=== PATIENT | female | born 1975 | race Caucasian/White ===

== ENCOUNTER 2017-01-17 21:04 | Emergency (ER) | payer MEDICAID ==
[~2017-01-17] VITALS: Ht 157.5 cm; Wt 81.6 kg
[~2017-01-17 21:04] MED LIST: AUGMENTIN 875 M1 TAB PO; AURALGAN OT10 ML/BOT OT; COLCHICINE 0.60.6 MG PO; DARVOCET-N 1001 EACH PO; DIABETA2.5 M1 PO; FLEXERIL10 MG PO; GENTAMICIN3 MG/GM OP; IBU-8800 MG PO; INDOMETHACIN 2525 MG PO; LEVOTHYROXINE0.05 MG PO; LEVOTHYROXINE0.1 M1 PO; LORTAB 5/500 501 TAB PO; METFORMIN1000 MG PO; MOTRIN 400MG.400 MG PO; NAPROSYN 500MG500 MG PO; UNKNOWN MED PO; UNKNOWN THYROID MED PO
--- OUTSIDE RECORDS SUMMARY | 2017-01-17 21:08 | External Medical Summary Rpt ---
Demographics Preferred Language Serbian Marital Status Unknown Congregation Affiliation Unknown Race Unknown Ethnic Group Unknown Author Author , Organization [employer] Address Unknown Phone Unavailable Purpose Continuity of Care Document - through 2016 Immunization No patient found.
--- OUTSIDE RECORDS SUMMARY | 2017-01-17 21:08 | External Medical Summary Rpt ---
Author Author [facility] Organization [employer] Address Unknown Phone Unavailable Purpose Continuity of Care Document - through 2016
--- OUTSIDE RECORDS SUMMARY | 2017-01-17 21:08 | External Medical Summary Rpt ---
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 complet OR 012 SERGEI, ed 09:30 RN ETHNICI 07-12-2 WHITE, complet TY 012 NON-HIS ed 09:30 PANIC KIT 07-17-2 complet EXPIRAT 012 012 ed ION 09:30 DATE SYMPTOM YES complet S 012 ed 09:30 REASON 07-12- VOLUNTE complet FOR 012 ER/MEDI ed REQUEST 09:30 DOMINICK PROBLEM SPECIME URINE complet N 012 ed SOURCE 09:30 PREGNAN 07-12-2 NO complet T 012 ed 09:30 CHART 403-17- complet NUMBER 012 [id number] ed 09:30 Chlamyd 07-12- Pending complet ia 012 ed trachom 09:30 atis rRNA [Presen ce] in Unspeci fied specime n by Probe & target amplifi cation method Neisser 07-12-2 Pending complet ia 012 ed gonorrh 09:30 oeae rRNA [Presen ce] in Unspeci fied specime n by Probe & target amplifi cation method
--- OUTSIDE RECORDS SUMMARY | 2017-01-17 21:08 | External Medical Summary Rpt ---
Demographics Preferred Language Nepali Marital Status Unknown Zoroastrian Affiliation Unknown Race Unknown Ethnic Group Unknown Author Author , Organization [employer] Address Unknown Phone Unavailable Purpose Continuity of Care Document - through 2016 Immunization No patient found.
--- OUTSIDE RECORDS SUMMARY | 2017-01-17 21:09 | External Medical Summary Rpt ---
Author Author HERNANDEZ Lau, HERNANDEZ [employer] Organization [employer] Address Unknown Phone Unavailable Results CHLAMYDIA AND GONORRHEA TESTING Observa Value Referen Units Interpr Notes Date tion ce etation Range COLLECT A. No No No No Jul 12 OR SERGEI, informa informa informa informa 2012 RN tion in tion in tion in tion in 9:30 AM source source source source data data data data ETHNICI WHITE, No No No No Jul 12 TY NON-HIS informa informa informa informa 2012 PANIC tion in tion in tion in tion in 9:30 AM source source source source data data data data KIT 10-31-2 No No No No Jul 12 EXPIRAT 012 informa informa informa informa 2012 ION tion in tion in tion in tion in 9:30 AM DATE source source source source data data data data SYMPTOM YES No No No No Jul 12 S informa informa informa informa 2012 tion in tion in tion in tion in 9:30 AM source source source source data data data data REASON VOLUNTE No No No No Jul 12 FOR ER/MEDI informa informa informa informa 2012 REQUEST DOMINICK tion in tion in tion in tion in 9:30 AM PROBLEM source source source source data data data data SPECIME URINE No No No No Jul 12 N informa informa informa informa 2012 SOURCE tion in tion in tion in tion in 9:30 AM source source source source data data data data PREGNAN NO No No No No Jul 12 T informa informa informa informa 2012 tion in tion in tion in tion in 9:30 AM source source source source data data data data CHART 403-17- No No No No Jul 12 NUMBER [id number] informa informa informa informa 2012 tion in tion in tion in tion in 9:30 AM source source source source data data data data Chlamyd NEGATIV No No No NEGATIV Jul 12 ia E informa informa informa E 2012 trachom tion in tion in tion in RESULT= 9:30 AM atis source source source WITHIN rRNA data data data NORMAL [Presen ce] in LIMITSP Unspeci OSITIVE fied specime RESULT= n by Probe & ABNORMA target LEQUIVO DOMINICK amplifi RESULT= cation method INDETER MINATEU NSATISF ACTORY RESULT= INVALID Neisser NEGATIV No No No NEGATIV Jul 12 ia E informa informa informa E 2012 gonorrh tion in tion in tion in RESULT= 9:30 AM oeae source source source WITHIN rRNA data data data NORMAL [Presen ce] in LIMITSP Unspeci OSITIVE fied specime RESULT= n by Probe & ABNORMA target LEQUIVO DOMINICK amplifi RESULT= cation method INDETER MINATEU NSATISF ACTORY RESULT= INVALID THE APTIMA COMBO 2 ASSAY IS NOT INTENDE D FOR THE EVALUAT ION OF SUSPECT EDSEXUA L ABUSE OR FOR OTHER MEDICO- LEGAL INDICAT IONS. FOR THOSE PATIENT S FORWHOM A FALSE POSITIV E RESULT MAY HAVE ADVERSE PSYCHO- SOCIAL IMPACT, [facility] RET[facility] NG.\.br \This report contain s patient informa tion that must be protect ed in accorda nce with the Health Insuran ce Portabi lity and Account ability Act. CHLAMYDIA AND GONORRHEA TESTING Observa Value Referen Units Interpr Notes Date tion ce etation Range COLLECT A. No No No No Jul 12 OR SERGEI, informa informa informa informa 2012 RN tion in tion in tion in tion in 9:30 AM source source source source data data data data ETHNICI WHITE, No No No No Jul 12 TY NON-HIS informa informa informa informa 2012 PANIC tion in tion in tion in tion in 9:30 AM source source source source data data data data KIT 10-31-2 No No No No Jul 12 EXPIRAT 012 informa informa informa informa 2012 ION tion in tion in tion in tion in 9:30 AM DATE source source source source data data data data SYMPTOM YES No No No No Jul 12 S informa informa informa informa 2012 tion in tion in tion in tion in 9:30 AM source source source source data data data data REASON VOLUNTE No No No No Jul 12 FOR ER/MEDI informa informa informa informa 2012 REQUEST DOMINICK tion in tion in tion in tion in 9:30 AM PROBLEM source source source source data data data data SPECIME URINE No No No No Jul 12 N informa informa informa informa 2012 SOURCE tion in tion in tion in tion in 9:30 AM source source source source data data data data PREGNAN NO No No No No Jul 12 T informa informa informa informa 2012 tion in tion in tion in tion in 9:30 AM source source source source data data data data CHART 403-17- No No No No Jul 12 NUMBER [id number] informa informa informa informa 2012 tion in tion in tion in tion in 9:30 AM source source source source data data data data Chlamyd Pending No No No No Jul 12 ia informa informa informa informa 2012 trachom tion in tion in tion in tion in 9:30 AM atis source source source source rRNA data data data data [Presen ce] in Unspeci fied specime n by Probe & target amplifi cation method Neisser Pending No No No \.br\Jul 12 ia informa informa informa is 2012 gonorrh tion in tion in tion in report 9:30 AM oeae source source source contain rRNA data data data s [Presen patient ce] in Unspeci informa fied tion specime that n by must be Probe & target protect ed in amplifi accorda cation nce method with the Health Insuran ce Portabi lity and Account ability Act.
--- OUTSIDE RECORDS SUMMARY | 2017-01-17 21:09 | External Medical Summary Rpt ---
Author Author HERNANDEZ Lau, HERNANDEZ [facility] Organization [employer] Address Unknown Phone Unavailable [...] MAY HAVE ADVERSE PSYCHO- SOCIAL IMPACT, [facility] NG.\.br \This report contain s [...]
[2017-01-17] MEDS ORDERED: BUDEPRION XL150 MG PO (21:18)
[2017-01-17] MEDS ORDERED: LISINOPRIL2.5 MG PO (21:19)
[2017-01-17] MEDS ORDERED: GABAPENTIN100 MG PO (21:19)
--- NOTE | 2017-01-17 21:27 | Emergency Room Report ---
History of Present Illness Time Seen by 2124 Presenting Problem in Triage Pt arrived:Walked Presenting Problem:PT RPTS VAGINAL BLEEDING X 2 WEEKS. PT STS "IT'S GETTING HEAVIER AND HEAVIER. I'VE GONE THROUGH 26 PADS IN A DAY." PT RPTS SHE SAW DR JACKSON OFFICE FOR SAME COMPLAINT, PT WAS PLACED ON CONTROL PILLS FOR A MONTH PT RPTS SHE TOOK HER LAST PILL 4 DAYS AGO. PT RPTS NO CHANGES IN THE VAGINAL BLEEDING. PT RPTS SHE ALSO HAS THE IMPLENON IN THE ARM, WITH PLANS TO HAVE IT REMOVED ON 01/30/17. 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 N Clinical Suspician of Infection? N Mental Status: 1 - Regular (Normal Baseline) Sepsis Risk:Low Sepsis Risk Have you (or family members/close friends) recently traveled outside the [place]? N If Yes, where/when: Have you had exposure to infectious disease within the past month? N TB? Other? Specify: Source patient, RN notes reviewed, family, old records Exam Limitations no limitations Comment over the last 2 week spt with crampy vag bleeding Cardiac Chest Pain Chest pain indicative of cardiac No Timing/Duration this evening Severity moderate ALLERGIES Coded Allergies: acetaminophen (From NYQUIL) (Mild, 01/17/17) dextromethorphan (From NYQUIL) (Mild, 01/17/17) doxylamine (From NYQUIL) (Mild, 01/17/17) pseudoephedrine (From NYQUIL) (Mild, 01/17/17) Penicillins (10/19/15) alcohol (10/19/15) Home Medications Reported Medications METFORMIN HCL (Metformin) 1,000 MG PO BID Glyburide (Diabeta) 2.5 MG PO DAILY Levothyroxine Sodium (Levothyroxine 0.1MG) 0.1 MG PO DAILY #30 Bupropion Hcl (Bupropion XL) 150 MG PO DAILY #30 Gabapentin (Gabapentin 100MG) 100 MG PO Q6HP PRN PAIN #120 LISINOPRIL (Lisinopril) 2.5 MG PO DAILY #30 History Medical History General CAD? No Angina: No [place]: No Hypertension? No Hyperlipidemia? Yes CHF? No DVT? No PE? No COPD? No Asthma? No Anemia? No GERD? No Gastric ulcers? No GI Bleed? No Hernia? No Thyroid Problems? No Hypothyroidism? No CVA? Yes Seizures? No Diabetes? Yes Insulin Dependent: No Insulin Pump: No Home FSBS? Yes Renal Insuffiency? No End Stage Renal Disease? No UTI? No Stones? No BPH? No GB Disease: No Nephritic Syndrome? No Asplenia? No Hepatitis? No Sickle Cell Disease? No Arthritis? No Migraines? No Cataracts? No Glaucoma? No MRSA? No HIV? No TB? No Anxiety? No Depression? No Cancer? Yes Site: CERVIX More? 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 Respiratory denies cough, denies shortness of breath, denies wheezing Cardiovascular denies chest pain, denies palpitations, denies syncope Gastrointestinal denies abdominal pain, denies diarrhea, denies vomiting Genitourinary see HPI, abnormal vaginal bleeding. denies: dysuria, frequency, hesitancy, hematuria. Musculoskeletal denies joint pain, denies muscle pain, denies neck pain Skin denies rash Psychiatric/Neurological denies headache, denies seizure Physical Exam Vital Signs Vital Signs Date Time Temp Pulse Resp B/P Pulse O2 O2 Flow FiO2 Ox Delivery Rate 01/17 2154 115 113/84 01/17 2154 109 116/81 01/17 2154 115 18 113/84 98 01/17 2146 96 110/66 01/17 2111 99.1 104 18 119/72 98 - WBC >12,000 or <4,000 or 10% bands? 2 or more SIRS Criteria Met? B/P: MAP:87 Creatinine >2.0? UA output<0.5ml/kg/hr for 2 hrs? Platelet count >100,000? Lactate >2.0mmol/1? INR >1.2 or PTT > than 60 sec? Evidence of Organ Dysfunction? Provider documented clinical suspician of infection? N Sepsis Criteria Count: 1 Sepsis Risk: Low Sepsis Risk General Appearance no apparent distress Eye Exam - bilateral eye PERRL, bilateral eye EOMI Ear, Nose, Throat normal ENT inspection Neck supple Respiratory Status No: respiratory distress. Cardiovascular regular rate/rhythm Peripheral Pulses Pulses normal Yes Gastrointestinal soft, no organomegaly, no pulsatile mass, no guarding, no rebound Extremities normal inspection Strength 4 Upper Ext (L), 4 Upper Ext (R), 4 Lower Ext (L), 4 Lower Ext (R) Pelvic deferred Neurologic alert, folder seamer II-XII nml as tested, no motor/sensory deficits Mental status normal mood/affect Skin intact Medical Decision Making LABS/Meds/Orders Pt receiving controlled substance in ED? No Results/Orders Laboratory Tests 01/17/172124: Sodium 138, Potassium 4.2, Chloride 103, Carbon Dioxide 28, BUN 9, Creatinine 0.9, Estimated Creat Clear 104, Estimated GFR (MDRD) 68, Glucose 296 H, Calcium 8.3 L, Total Bilirubin 0.3, AST 17, ALT 33, Alkaline Phosphatase 54, Total Protein 6.9, Albumin 3.3 L, Globulin 3.6 H, Albumin/Globulin Ratio 0.9 L, WBC 11.7 H, RBC 3.77 L, Hgb 12.1 L, Hct 35.7 L, MCV 94.6, RDW 12.6, Plt Count 335, MPV 6.1 L, Gran % 60.9, Gran # 7.1, Lymphocytes % 28.4, Monocytes % 6.1, Eosinophils % 4.0, Basophils % 0.6, Lymphocytes # 3.3, Monocytes # 0.7, Eosinophils # 0.5 H, Basophils # 0.1, PUBS MCHC 33.3, MCH 31.5 H 01/17/172114: Urine Color RED, Urine Appearance TURBID, Urine pH 6.0, Ur Specific Notus >= 1.030, Urine Protein 3+ H, Urine Ketones NEGATIVE, Urine Blood 3+ H, Urine Nitrate POSITIVE H, Urine Bilirubin NEGATIVE, Urine Urobilinogen 1.0, Ur Leukocyte Esterase TRACE H, Urine RBC TNTC, Urine WBC 3-5, Urine Bacteria 1+, Urine Glucose 3+ H Current Medication Orders Sig/Arnol Start time Last Medication Dose Route Stop Time Status Admin Sodium Chloride 1,000 ML .STK-MED ONE 01/17 2205 DC IV Sodium Chloride 10 ML PRN PRN 01/17 2130 AC IV 01/19 2120 Sodium Chloride 1,000 ML .Q1H1M 01/17 2130 DC 01/17 IV 01/17 Sodium Chloride 10 ML PRN PRN 01/17 2130 AC IV 01/18 2126 Orders Procedure Date/time Status ORTHOSTATIC B/P 01/17 2127 Active IV SALINE LOCK 01/18 2120 Active URINALYSIS/COMPLETE 01/18 2120 Complete CBC WITH AUTO DIFF 01/18 2120 Complete CHEM 12 PROFILE 01/18 2120 Complete CULTURE, URINE 01/17 2115 Active Departure Departure Time of Disposition 2236 Disposition DC Home or Self Care(routine) Clinical Impression Primary Impression: DUB (dysfunctional uterine bleeding) Condition STABLE Referrals Levi BULLOCK,Emmanuel Simpson discussed with dr sanchez Patient Instructions DI for Vaginal Bleeding Additional Instructions fluids and call pcp and dr sanchez in am Discharge Counseling Counseled pt/family regarding diagnosis, test results, medications/RX, follow up needs ED Critical Care Critical Care No at 2230
[2017-01-17 21:31] LABS: URINE BILIRUBIN - DIPSTICK NEGATIVE (NEG); URINE BLOOD 3+ (NEG)
[2017-01-17 21:41] LABS: LYMPH # 3.3 K/mm3 (0.7-4.5); LYMPH % 28.4 % (10-50.0)
[2017-01-17 21:49] LABS: HEMOGLOBIN 12.1 g/dL (12.2-16.2)
[2017-01-17 23:12] VITALS: BP 115/78
== END 2017-01-17 23:14 | disposition home or self-care (01) ==
LOC: ER 21:04
PROVIDERS: Emergency Medicine
DX: N93.8 Other specified abnormal uterine and vaginal bleeding (principal); E11.9 Type 2 diabetes mellitus without complications; Z72.0 Tobacco use

== ENCOUNTER 2017-04-14 19:25 | Emergency (ER) | payer MEDICAID ==
[~2017-04-14] VITALS: Ht 157.5 cm; Wt 81.6 kg
[~2017-04-14 19:25] MED LIST changes: +BUDEPRION XL150 MG PO; +GABAPENTIN100 MG PO; +LISINOPRIL2.5 MG PO
--- OUTSIDE RECORDS SUMMARY | 2017-04-14 19:46 | External Medical Summary Rpt ---
Demographics Preferred Language Turkmen Marital Status Unknown Christian Affiliation Unknown Race Unknown Ethnic Group Unknown Author Author , ALLIE NG Address Unknown Phone Immunization Unable to retrieve immunization data due to connection failure with Immunization Registry. Please try again later.
--- OUTSIDE RECORDS SUMMARY | 2017-04-14 19:46 | External Medical Summary Rpt ---
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 N93.8 OTHER SPECIFIED ABNORMAL UTERINE AND VAGINAL BLEEDING R31.9 HEMATURIA, UNSPECIFIED S33.5XXA SPRAIN OF LIGAMENTS OF LUMBAR SPINE, INITIAL ENCOUNTER Results Labs Lab Lab Date Result Refere Interp Status Commen Order Detail nces retati t Range on Drugs identified in Urine by Screen method (03-23-2017 14:46) Ampheta NEGATIV <1000 complet mine 017 E ed [Presen 14:46 ce] in Urine by Screen method 11-Hydr NEGATIV <50 complet oxy 017 E ed delta-9 14:46 tetrahy drocann abinol [Presen ce] in Unspeci fied specime n CHLAMYDIA AND GONORRHEA TESTING (07-12-2012 09:30) Chlamyd [...] OR 012 SERGEI, ed 09:30 RN ETHNICI WHITE, complet TY 012 NON-HIS ed 09:30 PANIC KIT complet EXPIRAT 012 012 ed ION 09:30 DATE SYMPTOM YES complet S 012 ed 09:30 REASON VOLUNTE complet FOR 012 ER/MEDI ed REQUEST 09:30 DOMINICK PROBLEM SPECIME 10-26-2 URINE complet N 012 ed SOURCE 09:30 PREGNAN NO complet T 012 ed 09:30 CHART 403-17- complet NUMBER 012 0845 ed 09:30 Chlamyd Pending complet ia 012 ed trachom 09:30 atis rRNA [Presen ce] in Unspeci fied specime n by Probe & target amplifi cation method Neisser Pending complet ia 012 ed gonorrh 09:30 oeae rRNA [Presen ce] in Unspeci fied specime n by Probe & target amplifi cation method
--- OUTSIDE RECORDS SUMMARY | 2017-04-14 19:46 | External Medical Summary Rpt ---
Author Author , HERNANDEZ NG Address Unknown Phone [email or web address] Purpose Continuity of Care Document - 07-12-2012 [...]
--- OUTSIDE RECORDS SUMMARY | 2017-04-14 19:46 | External Medical Summary Rpt ---
Demographics Preferred Language Welsh Marital Status Unknown Baptist Affiliation Unknown Race Unknown Ethnic Group Unknown Author Author , ALLIE NG Address Unknown Phone Immunization Unable to retrieve immunization data due to connection failure with Immunization Registry. Please try again later.
--- OUTSIDE RECORDS SUMMARY | 2017-04-14 19:47 | External Medical Summary Rpt ---
Author Author HERNANDEZ Lau, [employer] Organization [employer] Address Unknown Phone Unavailable Results Drugs identified in Urine by Screen method Observa Value Referen Units Interpr Notes Date tion ce etation Range Positive urine drug screen samples are stored for 7 days. Contact the Lab if confirmation of positives is needed. Ampheta NEGATIV <1000 ng/mL No No Mar 23 mine E informa informa 2017 [Presen tion in tion in 2:46 PM ce] in source source Urine data data by Screen method Barbitura <200 ng/mL No No Mar 23 jerri informati informati 2017 2:46 [Mass/vol on in on in PM ume] in source source Urine by data data Screen method Benzodiaz 200 ng/mL ng/mL No No Mar 23 epines informati informati 2017 2:46 [Mass/vol on in on in PM ume] in source source Serum or data data Plasma by Screen method Cocaine <300 ng/g No No Mar 23 [Mass/vol informati informati 2017 2:46 ume] in on in on in PM Unspecifi source source ed data data specimen Methadone <300 ng/mL No No Mar 23 informati informati 2017 2:46 [Mass/vol on in on in PM ume] in source source Unspecifi data data ed specimen Opiates <300 ng/mL No No Mar 23 [Mass/vol informati informati 2017 2:46 ume] in on in on in PM Unspecifi source source ed data data specimen Phencycli <25 ng/mL No No Mar 23 dine informati informati 2017 2:46 [Mass/vol on in on in PM ume] in source source Unspecifi data data ed specimen 11-Hydr NEGATIV <50 ng/mL No No Mar 23 oxy E informa informa 2017 delta-9 tion in tion in 2:46 PM source source tetrahy data data drocann abinol [Presen ce] in Unspeci fied specime n CHLAMYDIA AND GONORRHEA TESTING Observa Value Referen [...] MAY HAVE ADVERSE PSYCHO- SOCIAL IMPACT, [facility].\.br \This report contain s [...] 12 TY NON-HIS informa informa informa informa 2011 PANIC tion in tion in tion in [...] cation method Neisser Pending No No No \.br\Th Jul 12 ia informa informa informa is 2012 [...]
--- OUTSIDE RECORDS SUMMARY | 2017-04-14 19:47 | External Medical Summary Rpt ---
[...] HAVE ADVERSE PSYCHO- SOCIAL IMPACT, [facility].\.br \This report contain [...]
--- NOTE | 2017-04-14 20:06 | Emergency Room Report ---
History of Present Illness Time Seen by 2003 Presenting Problem in Triage Pt arrived:Walked Presenting Problem:CUT HER LEFT HAND ON KNIFE AT HOME. Onset of symptoms date/time:04/14/17 or onset unknown for: Treatment Prior to Arrival: [employer] Provided by: Sepsis Risk Assessment: Temp: 98.9 B/P: 133/91 MAP: 105 Pulse: 96 Resp: 14 Recent fever? N Clinical Suspician of Infection? N Mental Status: 1 - Regular (Normal Baseline) Sepsis Risk:Low Sepsis Risk Have you (or family members/close friends) recently traveled outside the [place]? N If Yes, where/when: Have you had exposure to infectious disease within the past month? N TB? Other? Specify: Comment The patient complains of a laceration to her LEFT hand. She was using a knife to pry apart frozen hamburgers when she accidentally stabbed herself in the fourth web space. No numbness, tingling, or weakness. Last tetanus immunization less than 5 years ago. ALLERGIES Coded Allergies: acetaminophen (From NYQUIL) (Mild, 01/17/17) dextromethorphan (From NYQUIL) (Mild, 01/17/17) doxylamine (From NYQUIL) (Mild, 01/17/17) pseudoephedrine (From NYQUIL) (Mild, 01/17/17) Penicillins (10/19/15) alcohol (10/19/15) Home Medications Reported Medications METFORMIN HCL (Metformin) 1,000 MG PO BID Glyburide (Diabeta) 2.5 MG PO DAILY Levothyroxine Sodium (Levothyroxine 0.1MG) 0.1 MG PO DAILY #30 Bupropion Hcl (Bupropion XL) 150 MG PO DAILY #30 Gabapentin (Gabapentin 100MG) 100 MG PO Q6HP PRN PAIN #120 LISINOPRIL (Lisinopril) 2.5 MG PO DAILY #30 History Medical History General CAD? No Angina: No [place]: No Hypertension? No Hyperlipidemia? Yes CHF? No DVT? No PE? No COPD? No Asthma? No Anemia? No GERD? No Gastric ulcers? No GI Bleed? No Hernia? No Thyroid Problems? No Hypothyroidism? No CVA? Yes Seizures? No Diabetes? Yes Insulin Dependent: No Insulin Pump: No Home FSBS? Yes Renal Insuffiency? No End Stage Renal Disease? No UTI? No Stones? No BPH? No GB Disease: No Nephritic Syndrome? No Asplenia? No Hepatitis? No Sickle Cell Disease? No Arthritis? No Migraines? No Cataracts? No Glaucoma? No MRSA? No HIV? No TB? No Anxiety? No Depression? No Cancer? Yes Site: CERVIX More? No Immunization Hx DT/Tetanus 5-10 Years Ago Surgical Hx Previous Surgery?Y CERVIX-LASAR SURGERY CYST REMOVED FROM HEAD D & C [employer] Hx LMP 13 Months Or More Social History Smoking Hx Smoker: Current Every Day Smoker Tobacco: Yes Type Cigarettes Packs/day 1 1/2 - 2 Packs Are you/the child exposed to second-hand smoke: Yes Alcohol Alcohol: No Review of Systems All Other Systems Reviewed and Negative Skin see HPI Psychiatric/Neurological denies numbness, denies tingling, denies weakness Physical Exam Vital Signs Vital Signs Date Time Temp Pulse Resp B/P Pulse O2 O2 Flow FiO2 Ox Delivery Rate 04/14 2046 98.9 92 18 133/79 98 04/14 2045 98.9 92 18 133/79 98 04/14 1936 98.9 96 14 133/91 98 General Appearance normal appearance Respiratory Status No: respiratory distress. Cardiovascular regular rate/rhythm, normal peripheral pulses Extremities 2 cm laceration in the LEFT hand fourth web space. It extends into subcutaneous tissue. Normal 2 point discrimination LEFT fingers. Normal flexor and extensor strength and range of motion. Normal capillary refill and pulses. Neurologic alert, no motor/sensory deficits Medical Decision Making LABS/Meds/Orders Pt receiving controlled substance in ED? No Results/Orders Current Medication Orders Sig/Arnol Start time Last Medication Dose Route Stop Time Status Admin Lidocaine HCl 10 ML ONCE ONE 04/14 2015 DC 04/14 SC 04/14 Lidocaine HCl 0 .STK-MED ONE 04/14 2011 DC .ROUTE Orders Procedure Date/time Status GEN NSG/PT REQ (NOT FOR MEDS!) 04/14 2030 Active Procedures Laceration/Wound Repair Progress Laceration Repair Performed by: JHOAN ADAMS Consent: Verbal consent obtained. Risks and benefits: risks, benefits and alternatives were discussed Consent given by: patient Patient identity confirmed: verbally with patient Laceration location: LEFT hand Laceration length: 2 cm Local anesthetic: 1 percent lidocaine plain Wound prep: Sterilly scrubbed with Hibiclens and irrigated with copious normal saline. Draping: Sterile in usual manner Patient sedated: no Debridement: No Exploration: No deep structure injury or foreign bodies Layers Closed: Skin Suture material, skin: 5-0 Prolene Number of sutures: 4 Patient tolerance: Patient tolerated the procedure well with no immediate complications Departure Departure Disposition DC Home or Self Care(routine) Clinical Impression Primary Impression: Laceration of left hand Qualifiers: Encounter type: initial encounter Foreign body presence: without foreign body Qualified Code: S61.412A - Laceration without foreign body of left hand, initial encounter Condition STABLE Referrals Jeison BULLOCK,Mir Fink (Family) Patient Instructions DI for Laceration Repair Additional Instructions Additional instructions for HAND LACERATION: Clean the wound daily with soap and water. Avoid submerging the wound. No swimming.DO NOT USE any antibiotic ointment such as Neosporin, Polysporin, or triple antibiotic. This will delay healing. See your primary care physician or return to the Urgent Treatment Center in 10 days for suture removal. Return if any signs of infection including increasing pain, pus drainage, swelling, redness, red streaks, or fever. ED Critical Care Critical Care No at 212
[2017-04-14 20:46] VITALS: BP 133/79
== END 2017-04-14 20:47 | disposition home or self-care (01) ==
LOC: ER 19:25
PROC: 0HQGXZZ Repair Left Hand Skin, External Approach (ICD-10-PCS; principal; 2017-04-14)
DX: S61.412A Laceration without foreign body of left hand, initial encounter (principal); W26.0XXA Contact with knife, initial encounter

== ENCOUNTER → 2017-08-28 | Outpatient (CLI) | payer MEDICAID ==
[2017-08-28 20:12] LABS: AMPHETAMINES/METAMPHETAMINES NEGATIVE ng/mL (<1000)
== END ==
LOC: LAB 18:22
PROVIDERS: Nurse Practitioner Family
DX: Z79.899 Other long term (current) drug therapy (principal)